=== PATIENT | female | born 1950 | race Caucasian/White ===

== ENCOUNTER 2017-10-28 06:11 | Day surgery (SDC) | payer OTHER, MEDICARE ==
--- NOTE | 2017-10-24 12:47 | HP ---
PREOPERATIVE HISTORY AND PHYSICAL: DATE OF ADMISSION: 10/28/17 PROVIDER: Dr. Reynaldo Mccauley.* (DICTATED BY MILO MORRIS) CHIEF COMPLAINT: Bilateral foot pain. HISTORY OF PRESENT ILLNESS: Anisa is a 67-year-old female who has had bilateral foot pain that has been ongoing for several years, the right is greater than left at this point. 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 In 2000, she had severe swelling and was treated by Dr. Izaguirre in [place] for several years. In 2006 and 2007, she underwent triple arthrodesis of bilateral feet with iliac crest grafting. She is healed very well from that. 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 It has become extremely painful for her and makes it difficult for her to walk. She also has some neuropathy due to the prolonged tarsal tunnel syndrome. She has been treated by Dr. Mazariegos for back and leg pain that also left her with some right leg weakness. She denies any new injury , fevers, or chills. She is interested in surgical intervention at this point. PAST MEDICAL HISTORY: Arthritis, anemia, and depression. PAST SURGICAL HISTORY: Triple arthrodesis in bilateral feet in 2006 and 2007. Right hip replacement in 2010. Right hip revision in 2012. Vertical band gastroplasty in 1987. She reports no complications with anesthesia. CURRENT MEDICATIONS: 1. Advil. 2. Tylenol as needed. ALLERGIES: TETRACYCLINE, MORPHINE, NARCAN, and ADHESIVE TAPE. FAMILY HISTORY: Positive for diabetes, heart disease, high blood pressures, stroke, and cancer. SOCIAL HISTORY: She lives with her . She is disabled, but previously worked as a registered nurse. She denies tobacco use. Denies alcoholic beverages. She rarely exercises. She is right hand dominant. REVIEW OF SYSTEMS: A 14-point review of systems was discussed with the patient and all systems were negative, except discussed in the HPI. PHYSICAL EXAMINATION GENERAL: She is a well-developed, well-nourished, pleasant female, in no acute distress at rest. She is alert and oriented x3 with appropriate mood and affect. Gait: She ambulates with a moderately antalgic gait favoring the right foot more. No obvious balance or coordination deficits. VITAL SIGNS: The patient 5 feet 9 inches, 189 pounds. Blood pressure 130/74, pulse of 72, respirations 12, temperature 97.7. HEENT: Normocephalic, atraumatic. Hearing and vision are grossly intact. NECK: Her trachea is midline. CARDIOVASCULAR: Regular rate and rhythm. No murmurs, rubs, or gallops. Normal S1 and S2. RESPIRATORY: Lungs are clear to auscultation bilaterally. No wheezes, rales, or rhonchi. ABDOMEN: Soft, nondistended, nontender, normal bowel sounds. EXTREMITIES: Exam of the right lower extremity: Skin is intact without abrasions or open wounds. She has well-healed incisions from previous surgeries. There is no edema, ecchymosis, or gross deformities about the ankles. She does have a claw toe deformity and slight hallus valgus of the foot as well. She has dorsiflexion to 5 degrees, plantarflexion to 40 degrees. No inversion or eversion secondary to her fusion. She has weakness with dorsiflexion of the foot and some weakness with knee extension and hip flexion. She has a positive Tinel's over the tarsal tunnel and 2+ dorsalis pedis pulses. IMAGING: Standing AP, lateral, and oblique views of the right foot were reviewed and show moderate arthritic changes of the first MTP joint and claw toe deformity. IMPRESSION: Right foot claw toe deformity. PLAN: The patient is to undergo right foot correction of claw toes [address]ccauley on 10/28/17. The risks, benefits, and postoperative course were discussed with the patient at length and she would like to proceed. All of her questions were answered to her full satisfaction. She is understanding to call with problems or concerns. MILO MORRIS [id number]/[facility] #: [id number] VERO
[~2017-10-28 06:11] MED LIST: Buffered Lidocaine 0.9% SYRIN* 5 ML/SYR SYRINGE INTRADERM ONE
[2017-10-28] MEDS ORDERED: Clindamycin 900 MG IVPREMIX(* 900 MG/50 ML SDV IV ONE (07:06)
[2017-10-28] MEDS ORDERED: Midazolam* 1 MG/ML 2 ML VIAL (2 MG) ONE (07:14)
[2017-10-28] MEDS ORDERED: Lidocaine 2% PF * 5 ML VIAL ONE (07:18)
[2017-10-28] MEDS ORDERED: Bupivacaine 0.5% PF 10 ML VIAL INJ ONE (07:18)
[2017-10-28] MEDS ORDERED: KETAMINE HCL* 50 MG/ML 10 ML VIAL ONE (07:18)
[2017-10-28] MEDS ORDERED: Propofol* 10 MG/ML 20 ML BTL IV PUSH ONE (07:18)
[2017-10-28] MEDS ORDERED: Famotidine IV* 10 MG/ML 2 ML (20 mg) ONE (08:12)
[2017-10-28] MEDS ORDERED: Dexamethasone IV* 4 MG/ML 1 ML (4 MG) ONE (08:12)
[2017-10-28] MEDS ORDERED: Ketorolac INJ* 15 MG/ML 1 ML VIAL IV PUSH ONE (08:52)
[2017-10-28] MEDS ORDERED: Ketorolac INJ* 30 MG/ML 1 ML VIAL ONE (08:52)
[2017-10-28] MEDS ORDERED: Acetaminophen TAB* 325 MG ONE (09:15)
[2017-10-28] MEDS ORDERED: oxyCODONE TAB* 5 MG TAB ONE ×2 (09:15→10:17)
[2017-10-28 10:32] VITALS: BP 174/90
--- NOTE | 2017-10-29 01:14 | OP ---
DATE OF OPERATION: 10/28/17 - FOR[facility] DATE OF : 50 ATTENDING SURGEON: Reynaldo Mccauley MD PRINTS AND DRAWINGS CURATOR: Safia Woodard PA-C. PRE-OP DIAGNOSIS: Hallux valgus interphalangeus right forefoot and fixed hammertoes 2, 3, 4, and 5. POST-OP DIAGNOSIS: Hallux valgus interphalangeus right forefoot and fixed hammertoes 2, 3, 4, and 5. OPERATIVE PROCEDURE: IP fusion right great toe and PIP resection arthroplasty 2 , 3, 4, and 5. DESCRIPTION OF PROCEDURE: The patient was taken to the operating room where a thigh tourniquet was inflated. We made a transverse elliptical incision over the IP joint of the right great toe flexing down through the joint, which was markedly arthritic. We removed the bone surfaces with a small sagittal saw correcting the valgus deformity. The toe was then pinned into neutral position using paired 4.0 mm cannulated screws drilled from the tip of the toe to the base of the proximal phalanx, each of these approximately 40 mm in length. We then made transverse elliptical incisions over the 2nd, 3rd, 4th, and 5th PIP joints. We flexed through the joint excising the extensor capsule and the collateral ligaments. Each of these joint surfaces were then removed with a micro-sagittal saw and then pinned longitudinally with 0.062 C-wires. X-rays intraoperatively showed satisfactory positions. We then irrigated all five wounds closing with interrupted nylon sutures, and a compression dressing was applied. [id number]/[facility] #: [id number] VERO
--- NOTE | 2017-10-29 07:49 | RAD ---
INDICATION: M 79.671 COMPARISONS: August 29, 2017 TECHNIQUE: Fluoroscopy was provided for a surgical procedure. Total fluoroscopy time is: 3 seconds FINDINGS: Spot images demonstrate fixation of the first, second, and third distal rays. IMPRESSION: FLUOROSCOPY WAS PROVIDED FOR A SURGICAL PROCEDURE CPT II Codes: G9500
== END 2017-10-28 11:38 | disposition home or self-care (01) ==
LOC: OR 06:11
PROVIDERS: ATTEND Orthopaedic Surgery
DX: M20.11 Hallux valgus (acquired), right foot (principal); M20.41 Other hammer toe(s) (acquired), right foot; D64.9 Anemia, unspecified; F32.9 Major depressive disorder, single episode, unspecified; K21.9 Gastro-esophageal reflux disease without esophagitis; M19.90 Unspecified osteoarthritis, unspecified site
CPT/HCPCS: 76000; A9270-GY; C1713; J1100; J1885; J2250; J2704

== ENCOUNTER 2018-04-02 14:18 | Emergency (ER) | payer MEDICARE ==
[2018-04-02 16:50] LABS: ABS Basophils 0 10^3/ul (0-0.2); ABS Eosinophils 0.2 10^3/ul (0-0.6); ABS Monocytes 0.9 10^3/ul (0-0.8); ABS Neutrophils 5.2 10^3/ul (1.5-7.7); ABS Nucleated RBC 0 10^3/ul; Eosinophil % 3.1 %; Hematocrit 38 % (35-47); Hemoglobin 12.8 g/dl (12.0-16.0); Lymphocyte % 13.2 %; Mean Corpuscular HGB Conc 34 g/dl (31-36); Mean Corpuscular Hemoglobin 31 pg (27-31); Mean Corpuscular Volume 92 fL (80-97); Mean Platelet Volume 7.7 fL (7.4-10.4); Nucleated Red Blood Cells % 0.1; Platelet Count 250 10^3/ul (150-450); Red Blood Count 4.17 10^6/ul (4.00-5.40); Red Cell Distribution Width 14 % (10.5-15); White Blood Count 7.3 10^3/ul (3.5-10.8)
[2018-04-02 17:05] LABS: Albumin 3.9 g/dL (3.2-5.2); BUN/Creatinine Ratio 11.1 (8-20); C Reactive Protein 94.05 mg/L (<8.01); Calcium 9.5 mg/dL (8.6-10.3); EGFR Non-African American 55.9 (>60); Globulin 3.9 g/dL (2-4); Potassium 3.6 mmol/L (3.5-5.0); Total Bilirubin 0.5 mg/dL (0.2-1.0); Total Protein 7.8 g/dL (6.4-8.9)
[2018-04-02] MEDS ORDERED: Iodixanol* (CONTRAST) 320 MG/ML 100 ML SDV IV ONE (18:27)
[2018-04-02 19:09] LABS: Urine Appearance Cloudy; Urine Bacteria Absent (Absent); Urine Bilirubin Negative (Negative); Urine Blood 2+ (Negative); Urine Color Yellow; Urine Glucose Negative (Negative); Urine Ketones Trace (Negative); Urine Nitrite Negative (Negative); Urine Protein Negative (Negative); Urine Red Blood Cell 1+(3-5/hpf) (Absent); Urine Specific Gravity 1.021 (1.010-1.030); Urine Urobilinogen Negative (Negative); Urine White Blood Cell 1+(6-10/hpf) (Absent)
[2018-04-02] MEDS ORDERED: Ciprofloxacin TAB* 500 MG PO ONE (19:54)
[2018-04-02] MEDS ORDERED: metroNIDAZOLE TAB* 250 MG PO ONE (19:54)
--- NOTE | 2018-04-02 19:57 | ED ---
Abdominal Pain/Female - HPI Summary HPI Summary: Patient complains of rectal pain, mucus and blood in stool, lower abdominal pain bilaterally 3 days. Denies history of hemorrhoids. History of chronic constipation, chronic N/V. Denies fever, cough, sore throat, CP, SOB, change in urine. Medical history is chronic constipation, Hermann-Norman. History of vertical band surgery 30 years ago, possible appendectomy. - History of Current Complaint Chief Complaint: EDRectalPain Stated Complaint: RECTAL PAIN AND BLEEDING Time Seen by Provider: 04/02/18 17:48 Hx Obtained From: Patient Onset/Duration: Sudden Onset Timing: Constant Severity Initially: Moderate Severity Currently: Moderate Pain Intensity: 6 Pain Scale Used: 0-10 Numeric Location: Discrete At: RLQ, Discrete At: LLQ, Suprapubic, Other - Rectum Radiates: No Character: Dull, Cramping Aggravating Factor(s): Food Alleviating Factor(s): Nothing Associated Signs and Symptoms: Positive: Constipation, Blood in Stool Allergies/Adverse Reactions: Allergies Allergy/AdvReac Type Severity Reaction Status Date / Time Adhesive Tape Allergy Severe See Comment Verified 04/02/18 14:44 iron Allergy Severe Blisters Verified 04/02/18 14:44 morphine Allergy Severe Anaphylatic Verified 04/02/18 14:44 Shock tetracycline Allergy Severe Rash And Verified 04/02/18 14:44 Itching naloxone [From Narcan] AdvReac See Comment Verified 04/02/18 14:44 PMH/Surg Hx/FS Hx/Imm Hx Endocrine/Hematology History: Reports: Hx Anemia - has history of transfusions, last one 2012- iron allergy Denies: Hx Diabetes Cardiovascular History: Denies: Other Cardiovascular Problems/Disorders Respiratory History: Denies: Other Respiratory Problems/Disorders GI History: Reports: Hx Gastroesophageal Reflux Disease - heartburn, Other GI Disorders - Vertical banding gastroplasty-05/1987 History: Reports: Other Problems/Disorders - stress incontinence Denies: Hx Renal Disease Musculoskeletal History: Reports: Hx Arthritis - osteoarthritis, feet multiple surgeries, Hx Bursitis - Right hip, fractured, hip replacement, Other Musculoskeletal History - tarsal tunnel bilateral feet,carpal tunnel bilateral wrists,fx patella Sensory History: Denies: Hx Contacts or Glasses, 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 Bilateral foot reconstructions. Right patella removed 1972. Vertical banding gastroplasty Hx Anesthesia Reactions: No Infectious Disease History: No Infectious Disease History: Denies: Traveled Outside the [place] in Last 30 Days - Social History Alcohol Use: None Substance Use Type: Reports: None Smoking Status (MU): Never Smoked Tobacco Review of Systems Constitutional: Negative Eyes: Negative ENT: Negative Cardiovascular: Negative Respiratory: Negative Positive: Abdominal Pain Genitourinary: Negative Musculoskeletal: Negative Skin: Negative Neurological: Negative Psychological: Normal All Other Systems Reviewed And Are Negative: Yes Physical Exam - Summary Physical Exam Summary: Tenderness to palpation of abdomen diffusely. ON RECTAL EXAM NO EVIDENCE OF HEMORRHOIDS, FISSURES, ABSCESS. NO PAIN WITH ERIK. POSITIVE BLOOD IN STOOL VISUALLY. Triage Information Reviewed: Yes Vital Signs On Initial Exam: Initial Vitals Temp Pulse Resp BP Pulse Ox 98.6 F 84 20 134/79 99 04/02/18 14:38 04/02/18 14:38 04/02/18 14:38 04/02/18 14:38 04/02/18 14:38 Vital Signs Reviewed: Yes Appearance: Positive: Well-Appearing Skin: Positive: Warm Head/Face: Positive: Normal Head/Face Inspection Eyes: Positive: Normal Neck: Positive: Supple Respiratory/Lung Sounds: Positive: Clear to Auscultation Cardiovascular: Positive: Normal Abdomen Description: Positive: Other: Musculoskeletal: Positive: Normal Neurological: Positive: Normal Psychiatric: Positive: Normal AVPU Assessment: Alert - Nikolski Coma Scale Best Eye Response: 4 - Spontaneous Best Motor Response: 6 - Obeys Commands Best Verbal Response: 5 - Oriented Coma Scale Total: 15 Diagnostics - Vital Signs Vital Signs Temp Pulse Resp BP Pulse Ox 04/02/18 19:25 86 137/77 97 04/02/18 19:21 85 96 04/02/18 18:24 87 144/83 97 04/02/18 18:00 90 98 04/02/18 17:56 96 98 04/02/18 17:55 98 133/103 98 04/02/18 14:38 98.6 F 84 20 134/79 99 - Laboratory Lab Results: Lab Results 04/02/18 04/02/18 04/02/18 Range/Units 16:40 16:40 16:40 WBC 7.3 (3.5-10.8) 10^3/ul RBC 4.17 (4.00-5.40) 10^6/ul Hgb 12.8 (12.0-16.0) g/dl Hct 38 (35-47) % MCV 92 (80-97) fL MCH 31 (27-31) pg MCHC 34 (31-36) g/dl RDW 14 (10.5-15) % Plt Count 250 (150-450) 10^3/ul MPV 7.7 (7.4-10.4) fL Neut % (Auto) 71.3 % Lymph % (Auto) 13.2 % [place] % (Auto) 11.8 % Eos % (Auto) 3.1 % Baso % (Auto) 0.6 % Absolute Neuts (auto) 5.2 (1.5-7.7) 10^3/ul Absolute Lymphs (auto) 1.0 (1.0-4.8) 10^3/ul Absolute Monos (auto) 0.9 H (0-0.8) 10^3/ul Absolute Eos (auto) 0.2 (0-0.6) 10^3/ul Absolute Basos (auto) 0 (0-0.2) 10^3/ul Absolute Nucleated RBC 0 10^3/ul Nucleated RBC % 0.1 Sodium 138 (135-145) mmol/L Potassium 3.6 (3.5-5.0) mmol/L Chloride 105 (101-111) mmol/L Carbon Dioxide 26 (22-32) mmol/L Anion Gap 7 (2-11) mmol/L BUN 11 (6-24) mg/dL Creatinine 0.99 H (0.51-0.95) mg/dL Est GFR ( Amer) 67.7 (>60) Est GFR (Non-Af Amer) 55.9 (>60) BUN/Creatinine Ratio 11.1 (8-20) Glucose 99 (70-100) mg/dL Lactic Acid 0.8 (0.5-2.0) mmol/L Calcium 9.5 (8.6-10.3) mg/dL Total Bilirubin 0.50 (0.2-1.0) mg/dL AST 12 L (13-39) U/L ALT 7 (7-52) U/L Alkaline Phosphatase 60 (34-104) U/L C-Reactive Protein 94.05 H (<8.01) mg/L Total Protein 7.8 (6.4-8.9) g/dL Albumin 3.9 (3.2-5.2) g/dL Globulin 3.9 (2-4) g/dL Albumin/Globulin Ratio 1.0 (1-3) Lipase 20 (11.0-82.0) U/L Urine Color Urine Appearance Urine pH (5-9) Ur Specific [place] (1.010-1.030) Urine Protein (Negative) Urine Ketones (Negative) Urine Blood (Negative) Urine Nitrate (Negative) Urine Bilirubin (Negative) Urine Urobilinogen (Negative) Ur Leukocyte Esterase (Negative) Urine WBC (Auto) (Absent) Urine RBC (Auto) (Absent) Ur Squamous Epith Cells (Absent) Urine Bacteria (Absent) Urine Glucose (Negative) 04/02/18 Range/Units 18:58 WBC (3.5-10.8) 10^3/ul RBC (4.00-5.40) 10^6/ul Hgb (12.0-16.0) g/dl Hct (35-47) % MCV (80-97) fL MCH (27-31) pg MCHC (31-36) g/dl RDW (10.5-15) % Plt Count (150-450) 10^3/ul MPV (7.4-10.4) fL Neut % (Auto) % Lymph % (Auto) % [place] % (Auto) % Eos % (Auto) % Baso % (Auto) % Absolute Neuts (auto) (1.5-7.7) 10^3/ul Absolute Lymphs (auto) (1.0-4.8) 10^3/ul Absolute Monos (auto) (0-0.8) 10^3/ul Absolute Eos (auto) (0-0.6) 10^3/ul Absolute Basos (auto) (0-0.2) 10^3/ul Absolute Nucleated RBC 10^3/ul Nucleated RBC % Sodium (135-145) mmol/L Potassium (3.5-5.0) mmol/L Chloride (101-111) mmol/L Carbon Dioxide (22-32) mmol/L Anion Gap (2-11) mmol/L BUN (6-24) mg/dL Creatinine (0.51-0.95) mg/dL Est GFR ( Amer) (>60) Est GFR (Non-Af Amer) (>60) BUN/Creatinine Ratio (8-20) Glucose (70-100) mg/dL Lactic Acid (0.5-2.0) mmol/L Calcium (8.6-10.3) mg/dL Total Bilirubin (0.2-1.0) mg/dL AST (13-39) U/L ALT (7-52) U/L Alkaline Phosphatase (34-104) U/L C-Reactive Protein (<8.01) mg/L Total Protein (6.4-8.9) g/dL Albumin (3.2-5.2) g/dL Globulin (2-4) g/dL Albumin/Globulin Ratio (1-3) Lipase (11.0-82.0) U/L Urine Color Yellow Urine Appearance Cloudy Urine pH 5.0 (5-9) Ur Specific [place] 1.021 (1.010-1.030) Urine Protein Negative (Negative) Urine Ketones Trace A (Negative) Urine Blood 2+ A (Negative) Urine Nitrate Negative (Negative) Urine Bilirubin Negative (Negative) Urine Urobilinogen Negative (Negative) Ur Leukocyte Esterase Trace A (Negative) Urine WBC (Auto) 1+(6-10/hpf) A (Absent) Urine RBC (Auto) 1+(3-5/hpf) A (Absent) Ur Squamous Epith Cells Present A (Absent) Urine Bacteria Absent (Absent) Urine Glucose Negative (Negative) Result Diagrams: 04/02/18 16:40 04/02/18 16:40 Lab Statement: Any lab studies that have been ordered have been reviewed, and results considered in the medical decision making process. Abdominal Pain Fem Course/Dx - Course Course Of Treatment: Patient complains of rectal pain, mucus and blood in stool , lower abdominal pain bilaterally 3 days. Denies history of hemorrhoids. History of chronic constipation, chronic N/V. Denies fever, cough, sore throat , CP, SOB, change in urine. Medical history is chronic constipation, Hermann- Norman. History of vertical band surgery 30 years ago, possible appendectomy. Physical exam:Tenderness to palpation of abdomen diffusely. ON RECTAL EXAM NO EVIDENCE OF HEMORRHOIDS, FISSURES, ABSCESS. NO PAIN WITH ERIK. POSITIVE BLOOD IN STOOL VISUALLY. Vital signs are within normal limits. Labs unremarkable. CT abdomen and pelvis with contrast positive for infectious prostatitis. Started on Cipro and Flagyl here in the ED. Rx for same. - Diagnoses Provider Diagnoses: Constipation, Infective proctitis Discharge - Sign-Out/Discharge Documenting (check all that apply): Patient Departure - Discharge Plan Condition: Stable Disposition: HOME Prescriptions: Ciprofloxacin HCl [Cipro] 500 mg PO BID 10 Days #20 tablet metroNIDAZOLE [Flagyl 500 MG TAB] 500 mg PO TID 10 Days #30 tab Patient Education Materials: Proctitis (ED) Referrals: Jacquelyn Nunn MD [Primary Care Provider] - Additional Instructions: Take antibiotics as directed. Follow-up with primary care for management of constipation and follow-up on proctitis.. Return to the ED for any new or worsening symptoms. - Billing Disposition and Condition Condition: STABLE Disposition: Home
[2018-04-02 20:18] VITALS: BP 143/76
== END 2018-04-02 20:22 | disposition home or self-care (01) ==
LOC: ED 14:18
DX: K59.00 Constipation, unspecified (principal); K62.89 Other specified diseases of anus and rectum; R10.30 Lower abdominal pain, unspecified
CPT/HCPCS: 36415; 74177; 80053; 81003; 81015; 82270; 83605; 83690; 85025; 86140; 87086; 99283; A9270-GY; Q9967

== ENCOUNTER 2023-11-25 06:46 | Observation (INO) ==
[~2023-11-25 06:46] MED LIST changes: -Buffered Lidocaine 0.9% SYRIN* 5 ML/SYR SYRINGE INTRADERM ONE; +Buffered Lidocaine 1% SYRIN 1 ml INTRADERM ONE; +Lactated Ringers 1000 ml BAG 1,000 ML IV SCH; +Naloxone 0.4 mg VIAL 0.4 mg/ml 1 ml VIAL IV PRN; +Ondansetron 4 mg VIAL 2 MG/ML 2 ml VIAL IV PRN; +fentaNYL 100 mcg/2 ml 50 MCG/ML VIAL IV PRN
[2023-11-25] MEDS ORDERED: ceFAZolin 2 GM PREMIX 2 GM/50 ML BAG ONE (07:19)
[2023-11-25 07:29] LABS: Rapid COVID-19 Molecular Undetected (Undetected)
[2023-11-25] MEDS ORDERED: ROPIVACAINE 5 MG/ML 30 ML BTL (0.5%) ONE (07:56)
[2023-11-25] MEDS ORDERED: Dexamethasone IV 4 MG/ML VIAL 1 ml VIAL ONE ×2 (07:56→10:55)
[2023-11-25] MEDS ORDERED: Midazolam 2 mg/2 ml VIAL 1 mg/ml 2 ml VIAL (2 mg) ONE ×3 (07:57→11:20)
[2023-11-25] MEDS ORDERED: Ondansetron 4 mg VIAL 2 MG/ML 2 ml VIAL ONE ×2 (08:03→10:55)
[2023-11-25] MEDS ORDERED: Propofol 10 MG/ML 20 ML BTL ONE (08:50)
[2023-11-25] MEDS ORDERED: Lidocaine 2% PF 5 ML VIAL ONE (08:55)
[2023-11-25] MEDS ORDERED: fentaNYL 250 mcg/5 ml 50 MCG/ML 5 ml VIAL (250 MCG) ONE ×3 (08:55→11:56)
[2023-11-25] MEDS ORDERED: Vancomycin 1,000 MG VIAL ONE (09:55)
[2023-11-25] MEDS ORDERED: Tranexamic Acid 1 GM/100ML BAG 2,000 MG/200 ML BAG IV ONE (10:07)
[2023-11-25] MEDS ORDERED: Rocuronium 50 mg VIAL 10 mg/ml 5 ml VIAL (50 mg) ONE (10:10)
[2023-11-25] MEDS ORDERED: Sterile Water for Inj 10 ML ONE (10:23)
[2023-11-25] MEDS ORDERED: Acetaminophen IV 1 GM/100ML 1,000 MG/100 ML BAG IV ONE (10:54)
[2023-11-25] MEDS ORDERED: HYDROmorphone 0.5 MG/0.5 ML SYRINGE ONE (11:15)
[2023-11-25] MEDS ORDERED: Lidocaine 1% w EPI 1:200,000 SDV 30 ML VIAL ONE (12:44)
[2023-11-25] MEDS ORDERED: Calcium Carb (TUMS) 500 mg CHEW TAB PO PRN (14:04)
[2023-11-25] MEDS ORDERED: Magnesium Hydroxide LIQ 30 ML UDC PO PRN (14:04)
[2023-11-25] MEDS ORDERED: Ondansetron 4 mg VIAL 2 MG/ML 2 ml VIAL IV PRN (14:04)
[2023-11-25] MEDS ORDERED: KETAMINE HCL 10 MG/ML 20 ml VIAL (200 MG) ONE (16:03)
[2023-11-25] MEDS: HYDROcodone/ACETAMIN 5/325 mg TAB PO PRN (17:29)
[2023-11-25] MEDS: Lactated Ringers 1000 ml BAG 1,000 ML IV SCH (17:29)
[2023-11-25] MEDS: Ondansetron ODT 4 mg TAB 4 MG TAB PO PRN (17:29)
[2023-11-25] MEDS: ceFAZolin 2 GM PREMIX 2 GM/50 ML BAG IV SCH (19:37)
[2023-11-25] MEDS: Cholecalciferol (VIT D3) 1,000 unit TAB PO SCH (22:05)
[2023-11-25] MEDS: Magnesium Hydroxide LIQ 30 ML UDC PO SCH (22:07)
[2023-11-26 06:41] LABS: Hematocrit 35.5 % (35-45); Hemoglobin 11.8 g/dL (11.5-14.3); Platelet Count 184 10^3/uL (150-450)
[2023-11-26 06:53] LABS: Creatinine, Serum 1.08 mg/dL (0.51-0.95); Potassium 4.5 mmol/L (3.5-5.0); eGFR CKD-EPI 54.2 (>60)
[2023-11-26] MEDS: Vitamin THERAPEUTIC TAB PO SCH (08:37)
[2023-11-27 07:09] LABS: Hematocrit 31.1 % (35-45); Hemoglobin 10.4 g/dL (11.5-14.3); Mean Platelet Volume 9.4 fL (7.5-11.2); Platelet Count 142 10^3/uL (150-450)
[2023-11-27 09:42] LABS: Calcium 8.4 mg/dL (8.6-10.3); Creatinine, Serum 1.05 mg/dL (0.51-0.95); Potassium 4.7 mmol/L (3.5-5.0); eGFR CKD-EPI 56.1 (>60)
[2023-11-28 05:57] LABS: Hematocrit 28.7 % (35-45); Hemoglobin 9.6 g/dL (11.5-14.3); Mean Platelet Volume 9.6 fL (7.5-11.2); Platelet Count 144 10^3/uL (150-450)
[2023-11-29 07:01] LABS: Hematocrit 28.7 % (35-45); Hemoglobin 9.6 g/dL (11.5-14.3); Mean Platelet Volume 9.2 fL (7.5-11.2); Platelet Count 177 10^3/uL (150-450)
[2023-11-30 06:11] LABS: Hematocrit 27.7 % (35-45); Hemoglobin 9.5 g/dL (11.5-14.3); Mean Platelet Volume 8.9 fL (7.5-11.2); Platelet Count 179 10^3/uL (150-450)
[2023-11-30] MEDS: COVID VAC 23-24(12+)(Moderna) SYR 0.5 ML IM ONE (09:07)
[2023-12-01] MEDS: Lactulose 30 ml UDC PO PRN (13:49)
[2023-12-02 09:55] VITALS: BP 117/81
[2023-12-02 10:52] LABS: Rapid COVID-19 Molecular Undetected (Undetected)
== END 2023-12-02 11:20 ==
LOC: OR 06:46 → SSU 06:46
PROVIDERS: ADMIT Orthopaedic Surgery; ATTEND Orthopaedic Surgery